=== PATIENT | male | born 1935 | race Caucasian/White ===

== ENCOUNTER → 2018-02-20 14:01 | Outpatient (CLI) | payer OTHER, SELFPAY ==
[2018-02-20 14:55] LABS: Blood Urea Nitrogen 24 mg/dL (9-20); Calcium 9.2 mg/dL (8.4-10.2); Carbon Dioxide 29 mmol/L (22-32); Chloride 105 mmol/L (98-107); Glucose 113 mg/dL (80-110); HEMOLYSIS < 15 (0-50); Potassium 4.3 mmol/L (3.4-5.1); Sodium 145 mmol/L (137-145)
== END ==
PROVIDERS: Family Provider Internal Medicine; PCP Internal Medicine; Visit Provider Internal Medicine Cardiovascular Disease
DX: I10 Essential (primary) hypertension (principal)
CPT/HCPCS: 36415; 80048

== ENCOUNTER 2018-07-11 22:32 | Emergency (ER) | payer OTHER, SELFPAY ==
[2018-07-11 22:25] VITALS: BP 107/68; PULSE 59; RESP 37; TEMP 38.3; O2SAT 92; BMI 25.1
[2018-07-11 22:26] VITALS: BP 107/68; PULSE 87; RESP 37; TEMP 38.3; O2SAT 95; BMI 25.1
--- NOTE | 2018-07-11 22:31 | ED.NAVMDI ---
HPI - Nausea/Vomiting/Diarrhea General Chief complaint: Nausea/Vomiting/Diarrhea Stated complaint: GLF N/V Time Seen by Provider: 07/11/18 22:32 Source: patient Mode of arrival: EMS Limitations: no limitations History of Present Illness HPI Narrative: 83-year-old male not on anticoagulation here for evaluation of a ground level fall. Patient was brought in by EMS. Ems was called by 1 of his neighbors. He lives at a assisted living facility however is mostly independent. He states that he was bending over to pick something up off the ground when he fell. No loss of consciousness. Not on anticoagulation. EMS reports that he was covered in vomit when they got there. He states that he did vomit after he fell however he has been vomiting throughout the day. He states that is black colored. He does have some abdominal tenderness. Some nausea. Related Data Home Medications Medication Instructions Recorded Confirmed VITAMIN D (Vitamin D3) 1,000 unit PO QDAY #0 03/11/17 aspirin 81 mg PO QDAY #0 03/11/17 chlorthalidone 25 mg PO QDAY #0 03/11/17 losartan 50 mg PO QDAY #0 03/11/17 metoprolol tartrate 50 mg PO DAILY #0 03/11/17 Allergies Allergy/AdvReac Type Severity Reaction Status Date / Time Sulfa (Sulfonamide Allergy Intermediate UNSURE OF Verified 07/11/18 23:04 Antibiotics) REACTION [SULFA (SULFONAMIDE ANTIBIOTICS)] Review of Systems Constitutional Denies frequent falls and Denies headache(s) ENT Ears, Nose, Mouth, and Throat: Denies vertigo, Denies dizziness and Denies headache(s) Cardiovascular Denies chest pain and Denies dyspnea Respiratory Denies dyspnea Gastrointestinal Gastrointestinal: Reports abdominal pain, Denies change in bowel habits, Denies change in stool character, Reports coffee ground emesis, Denies diarrhea, Reports nausea and Reports vomiting Genitourinary Denies dysuria Integumentary/Breasts Comments: Skin tear to his left elbow a fall Neurologic Denies vertigo, Denies dizziness, Denies frequent falls and Denies headache(s) Hematologic/Lymphatic Denies easy bleeding and Denies easy bruising Allergic/Immunologic Denies urticaria PFSH Medical History Hyperlipidemia (Acute) Hypertension (Acute) Surgical History History of permanent cardiac pacemaker placement (Acute) Social History housing: assisted living facility Social History housing: assisted living facility Exam Initial Vital Signs Initial Vital Signs: Vital Signs Temperature 100.9 F H 07/11/18 22:25 Pulse Rate 59 L 07/11/18 22:25 Respiratory Rate 37 H 07/11/18 22:25 Blood Pressure 107/68 07/11/18 22:25 Pulse Oximetry 92 07/11/18 22:25 Const General: comfortable, well developed and ill appearing Orientation: alert, awake and oriented x3 HENMT Head: normal to inspection and normocephalic Ears: hearing grossly normal bilaterally Nose: external nose normal Face and sinus: normal facial exam Eyes Pupils: PERRL Resp Effort & Inspection: not labored and tachypneic Auscultation: rhonchi Cardio Rate: regular rate Pulses: radial pulses present Other: Paced rhythm GI Inspection: non-distended Palpation: soft, firm, No guarding and tender (Diffusely tender) Other: Very large red and tender left sided inguinal hernia. Skin Other: Skin tear left elbow Neuro General: alert, awake and oriented x3 Cognition: normal cognition Speech: speech normal Extrem General: normal to inspection, capillary refill normal and edema Other: Pelvis stable. Moves all 4 extremities. Psych Appearance: grossly normal and well kempt Course Orders Ordered: ED Orders 07/11/18 22:29 EKG-12 Lead Stat 07/11/18 22:41 XR chest 1V Stat 07/11/18 22:48 Blood Culture Stat 07/11/18 22:51 CT abdomen pelvis w con Stat 07/11/18 22:58 B Type Natriuretic Peptide Stat Complete Blood Count AUTO DIFF Stat Lactate (Lactic Acid) Stat Partial Thromboplastin Time Stat Procalcitonin Stat Prothrombin Time INR Stat Type and Screen Stat 07/11/18 22:59 Comprehensive Metabolic Panel Stat Lipase Stat Troponin I Stat 07/12/18 00:38 XR chest 1V Stat Pantoprazole Sodium 80 mg/ (Sodium Chloride) 100 mls @ 10 mls/hr IV CONT NÉSTOR Last Admin: 07/12/18 00:08 Dose: 8 mg/hr, 10 mls/hr Sodium Chloride (Normal Saline 0.9%) 2,313.33 mls @ 771.11 mls/hr 30 ml/kg infuse over 3 hr (2313.33 ml) IV CONT NÉSTOR Last Infusion: 07/12/18 00:11 Dose: 600 mls/hr Admin: 07/12/18 00:09 Dose: 771.11 mls/hr Discontinued Medications Sodium Chloride (Normal Saline 0.9%) 1,000 mls @ 1,000 mls/hr IV BOLUS ONE Stop: 07/11/18 23:24 Last Infusion: 07/12/18 00:08 Dose: 0 mls/hr Infusion: 07/11/18 22:54 Dose: 125 mls/hr Admin: 07/11/18 22:53 Dose: 1,000 mls/hr Pantoprazole Sodium 80 mg/ (Sodium Chloride) 100 mls @ 300 mls/hr IV NOW ONE Stop: 07/11/18 23:09 Last Admin: 07/11/18 22:59 Dose: Not Given Piperacillin/Tazobactam/Dextrose (Zosyn) 3.375 gm in 50 mls @ 100 mls/hr IV NOW ONE Stop: 07/12/18 00:00 Last Infusion: 07/12/18 00:38 Dose: 0 mls/hr Admin: 07/12/18 00:00 Dose: 100 mls/hr Vancomycin HCl/Dextrose (Vancomycin) 1,000 mg in 200 mls @ 200 mls/hr IV NOW ONE Stop: 07/12/18 00:30 Last Infusion: 07/12/18 01:07 Dose: 0 mls/hr Admin: 07/12/18 00:07 Dose: 200 mls/hr Sodium Chloride (Normal Saline 0.9%) 1,000 mls @ 200 mls/hr IV CONT NÉSTOR Ondansetron HCl (Zofran Odt) 4 mg PO NOW ONE Stop: 07/11/18 22:41 Last Admin: 07/11/18 22:53 Dose: Not Given Ondansetron HCl (Zofran) 4 mg IV NOW ONE Stop: 07/11/18 22:52 Last Admin: 07/11/18 22:52 Dose: 4 mg Pantoprazole Sodium (Protonix) 80 mg IV NOW ONE Stop: 07/11/18 22:59 Last Admin: 07/11/18 23:04 Dose: 80 mg Vital Signs - 8 hr 07/11/18 22:25 07/11/18 22:26 07/11/18 23:07 Temperature 100.9 F H 100.9 F H Pulse Rate 59 L 87 87 Respiratory Rate 37 H 37 H 35 H Blood Pressure 107/68 107/68 Blood Pressure [Right Arm] 99/64 Pulse Oximetry 92 95 100 07/11/18 23:30 07/12/18 00:00 07/12/18 00:22 Temperature Pulse Rate 94 H 88 89 Respiratory Rate 38 H 35 H 30 H Blood Pressure Blood Pressure [Right Arm] 90/54 L 114/67 98/64 Pulse Oximetry 97 97 95 07/12/18 00:24 07/12/18 00:45 07/12/18 00:55 Temperature Pulse Rate 89 87 84 Respiratory Rate 31 H 37 H 36 H Blood Pressure Blood Pressure [Right Arm] 94/61 89/58 L 102/61 Pulse Oximetry 95 95 95 07/12/18 01:10 07/12/18 01:15 Temperature 99.1 F Pulse Rate 85 78 Respiratory Rate 38 H 28 H Blood Pressure Blood Pressure [Right Arm] 101/59 L 93/74 Pulse Oximetry 96 93 MDM - Nausea/Vomiting/Diarrhea Lab Data Attestation: I reviewed the patient's lab results. Result diagrams: 07/11/18 22:58 07/11/18 22:59 Lab Results 07/11/18 07/11/18 07/11/18 Range/Units 22:58 22:58 22:58 WBC 8.1 (4.5-11.0) X10^3/uL RBC 3.88 L (4.5-5.9) X10^6/uL Hgb 12.2 L (13.5-17.5) g/dL Hct 37.3 L (41-53) % MCV 96.1 (80-100) fL MCH 31.5 (26-34) PG MCHC 32.8 (30-36) % RDW 13.5 (11.6-14.8) % Plt Count 203 (150-400) X10^3/uL Neut % (Auto) 94.7 H (50-75) % Lymph % (Auto) 3.2 L (25-40) % Hart % (Auto) 1.9 L (3-14) % Eos % (Auto) 0.0 L (2-4) % Baso % (Auto) 0.2 (0-2) % Neut # (Auto) 7700 H (7294-7773) /uL Lymph # (Auto) 300 L (2781-3069) /uL Hart # (Auto) 200 (0-900) /uL Eos # (Auto) 0 (0-450) /uL Baso # (Auto) 0 (0-100) /uL PT 12.7 (10.1-12.7) SECONDS INR 1.1 (0.9-1.3) APTT 23 L (26.4-36.2) SECONDS Sodium (137-145) mmol/L Potassium (3.4-5.1) mmol/L Chloride (98-107) mmol/L Carbon Dioxide (22-32) mmol/L BUN (9-20) mg/dL Creatinine (0.66-1.25) mg/dL Estimated GFR (>60) mL/min BUN/Creatinine Ratio (6-22) Glucose (80-110) mg/dL Lactate (0.7-2.1) mmol/L Calcium (8.4-10.2) mg/dL Total Bilirubin (0.2-1.3) mg/dL AST (17-59) IU/L ALT (21-72) IU/L Alkaline Phosphatase (38-126) U/L Troponin I (0.01-0.034) ng/mL B-Natriuretic Peptide (<100) Total Protein (6.3-8.2) g/dL Albumin (3.5-5.0) g/dL Globulin (1.7-4.1) g/dL Albumin/Globulin Ratio (1.0-2.8) Lipase (23-300) U/L Procalcitonin 0.61 H (<0.5) ng/mL Blood Type Antibody Screen 07/11/18 07/11/18 07/11/18 Range/Units 22:58 22:58 22:58 WBC (4.5-11.0) X10^3/uL RBC (4.5-5.9) X10^6/uL Hgb (13.5-17.5) g/dL Hct (41-53) % MCV (80-100) fL MCH (26-34) PG MCHC (30-36) % RDW (11.6-14.8) % Plt Count (150-400) X10^3/uL Neut % (Auto) (50-75) % Lymph % (Auto) (25-40) % Hart % (Auto) (3-14) % Eos % (Auto) (2-4) % Baso % (Auto) (0-2) % Neut # (Auto) (3299-8199) /uL Lymph # (Auto) (2478-3853) /uL Hart # (Auto) (0-900) /uL Eos # (Auto) (0-450) /uL Baso # (Auto) (0-100) /uL PT (10.1-12.7) SECONDS INR (0.9-1.3) APTT (26.4-36.2) SECONDS Sodium (137-145) mmol/L Potassium (3.4-5.1) mmol/L Chloride (98-107) mmol/L Carbon Dioxide (22-32) mmol/L BUN (9-20) mg/dL Creatinine (0.66-1.25) mg/dL Estimated GFR (>60) mL/min BUN/Creatinine Ratio (6-22) Glucose (80-110) mg/dL Lactate 9.7 H (0.7-2.1) mmol/L Calcium (8.4-10.2) mg/dL Total Bilirubin (0.2-1.3) mg/dL AST (17-59) IU/L ALT (21-72) IU/L Alkaline Phosphatase (38-126) U/L Troponin I (0.01-0.034) ng/mL B-Natriuretic Peptide 1360 H (<100) Total Protein (6.3-8.2) g/dL Albumin (3.5-5.0) g/dL Globulin (1.7-4.1) g/dL Albumin/Globulin Ratio (1.0-2.8) Lipase (23-300) U/L Procalcitonin (<0.5) ng/mL Blood Type A Positive Antibody Screen Negative 07/11/18 Range/Units 22:59 WBC (4.5-11.0) X10^3/uL RBC (4.5-5.9) X10^6/uL Hgb (13.5-17.5) g/dL Hct (41-53) % MCV (80-100) fL MCH (26-34) PG MCHC (30-36) % RDW (11.6-14.8) % Plt Count (150-400) X10^3/uL Neut % (Auto) (50-75) % Lymph % (Auto) (25-40) % Hart % (Auto) (3-14) % Eos % (Auto) (2-4) % Baso % (Auto) (0-2) % Neut # (Auto) (9838-2471) /uL Lymph # (Auto) (2871-3389) /uL Hart # (Auto) (0-900) /uL Eos # (Auto) (0-450) /uL Baso # (Auto) (0-100) /uL PT (10.1-12.7) SECONDS INR (0.9-1.3) APTT (26.4-36.2) SECONDS Sodium 145 (137-145) mmol/L Potassium 3.8 (3.4-5.1) mmol/L Chloride 107 (98-107) mmol/L Carbon Dioxide 20 L (22-32) mmol/L BUN 47 H (9-20) mg/dL Creatinine 1.80 H (0.66-1.25) mg/dL Estimated GFR 36.2 L (>60) mL/min BUN/Creatinine Ratio 26.1 H (6-22) Glucose 160 H (80-110) mg/dL Lactate (0.7-2.1) mmol/L Calcium 9.3 (8.4-10.2) mg/dL Total Bilirubin 0.8 (0.2-1.3) mg/dL AST 26 (17-59) IU/L ALT 14 L (21-72) IU/L Alkaline Phosphatase 51 (38-126) U/L Troponin I 0.285 H* (0.01-0.034) ng/mL B-Natriuretic Peptide (<100) Total Protein 7.0 (6.3-8.2) g/dL Albumin 4.1 (3.5-5.0) g/dL Globulin 2.9 (1.7-4.1) g/dL Albumin/Globulin Ratio 1.4 (1.0-2.8) Lipase 1190 H (23-300) U/L Procalcitonin (<0.5) ng/mL Blood Type Antibody Screen Imaging Data CT scan - abdomen: Radiologist's impression: Large left inguinal hernia containing bowel with mesenteric edema present, possible strangulation. Marked distention of the stomach and duodenum. Distended distal esophagus. Partially thrombosed abdominal aortic aneurysm. Right kidney cortical cyst. Right cardiophrenic angle cystic structure measuring about 3 cm. Possible pericardial cyst. Small ascites. No free air. Chest x-ray: Attestation: I personally reviewed and interpreted this imaging study as follows: My impression: Bilateral patchy infiltrates. Marked distention of the gastric bubble Post NG tube chest x-ray: Attestation: I personally reviewed and interpreted this imaging study as follows: My impression: Unchanged with previous chest x-ray except hand G-tube in the stomach ECG Data Attestation: I personally reviewed and interpreted this ECG as follows: Prior ECG tracings: not available for review Interpretation: Ventricularly paced rhythm Rate of 88 Widened QRS Normal QTC MDM Narrative Medical decision making narrative: Patient's blood pressure and heart rate improved with fluid resuscitation. He was given Zosyn and vancomycin for presumed sepsis. NG tube was placed with return of greater than 3 L of dark GI contents. Patient states he feels better after placement of the NG tube. Does have an elevated troponin. I suspect this is demand ischemia. He is not complaining of any chest pain. Patient does have a bump in his creatinine. He does not have an elevated white count does have a left shift. Procalcitonin elevated lactate significantly elevated. CT scan concerning for strangulated inguinal hernia. This was reduced in the emergency department with minimal discomfort. Her also reports of a thrombosed abdominal aortic aneurysm. Patient also has a elevated lipase consistent with pancreatitis. I feel given his multiple comorbidities that transferring to a facility that has Cardiology and vascular surgery and General surgery and Intensive Care Medicine is warranted. Discussed the case with Dr. Benitez with General surgery at [facility] who recommended that the patient be admitted to the ICU. I discussed the case with Dr. Diaz chronic manager at [facility] who accepts the patient for transport. Discussed the transport with the patient expressed understanding and agreement. Patient is stable for transport. Critical Care Time Critical Care Time: Yes Total Critical Care Time: 35 Attestation: The high probability of a clinically significant, sudden or life threatening deterioration of the cardiovascular, GI, system(s) required my full and direct attention, intervention and personal management. The aggregate critical care time was 35 minutes. This time is in addition to time spent performing reported procedures but includes the following: [] Data Review and interpretation [] Patient assessment and monitoring of vital signs [] Documentation [] Medication orders and management Discharge Plan Departure Patient Disposition: [facility] Clinical Impression: Strangulated inguinal hernia, Acute kidney injury, Elevated troponin GI bleed Qualifiers: GI bleed type/associated pathology: unspecified gastrointestinal hemorrhage type Qualified Code(s): K92.2 - Gastrointestinal hemorrhage, unspecified Pancreatitis Qualifiers: Chronicity: acute Pancreatitis type: unspecified pancreatitis type Acute pancreatitis complication: unspecified Qualified Code(s): K85.90 - Acute pancreatitis without necrosis or infection, unspecified Prescriptions: No Action losartan 50 MG tablet 50 mg PO QDAY Qty: 0 RF: 0 metoprolol tartrate 50 MG tablet 50 mg PO DAILY Qty: 0 RF: 0 chlorthalidone 25 MG tablet 25 mg PO QDAY Qty: 0 RF: 0 aspirin 81 MG tablet,delayed release (DR/EC) 81 mg PO QDAY Qty: 0 RF: 0 VITAMIN D (Vitamin D3) 1,000 unit PO QDAY Qty: 0 RF: 0 Referrals: Aubrey Brice MD [Primary Care Provider] -
--- NOTE | 2018-07-11 22:41 | DI.RAD.S_ITS ---
PROCEDURE: XR CHEST 1V INDICATIONS: shortness of breath TECHNIQUE: One view of the chest was acquired. COMPARISON: [facility], , XR CHEST 1V, 07/12/2018, 0:42. [facility], , CHEST 2 VIEW, 06/11/2016, 11:01. FINDINGS: Surgical changes and devices: Cardiac pacer Lungs and pleura: No acute consolidation. Scattered subsegmental atelectasis and/or scarring. No pleural effusions or pneumothorax. Mediastinum: Mediastinal contours appear normal. Heart size is normal. Bones and chest wall: No suspicious bony lesions. Overlying soft tissues appear unremarkable. IMPRESSION: No acute consolidation. Scattered subsegmental atelectasis and/or scarring. Dictated by: Arturo Jean-Baptiste M.D. on 07/12/2018 at 7:44 Approved by: Arturo Jean-Baptiste M.D. on 07/12/2018 at 7:45
--- NOTE | 2018-07-11 22:51 | DI.CT.S_ITS ---
PROCEDURE: CT ABDOMEN PELVIS W CON INDICATIONS: GI bleed TECHNIQUE: After the administration of intravenous contrast, 5 mm thick sections acquired from the diaphragm to the symphysis. 5 mm coronal and sagittal reformats were acquired. For radiation dose reduction, the following was used: automated exposure control, adjustment of mA and/or kV according to patient size. COMPARISON: None. FINDINGS: Image quality: Excellent. ABDOMEN: Lung bases: Posterior consolidative opacity in the right lower lobe, this may be rounded atelectasis. Trace left pleural fluid. The heart is mildly enlarged. There are coronary artery calcifications right basilar posterior calcified pleural plaques. There is a approximately 3 cm low-attenuation possible pericardial cyst in the right pericardiophrenic sulcus. Solid organs: Presumed subcentimeter multiple hepatic cysts although these are technically too small to characterize accurately, otherwise liver is normal in size and enhancement. Gallbladder unremarkable. Biliary system is non dilated. Pancreas enhances normally. Spleen is normal in size and enhancement. No adrenal nodules. Bilateral renal cortical scarring and thinning. Simple appearing right renal cyst. Peritoneum and bowel: Fluid-filled and dilated esophagus. Marked dilatation of the stomach. There is questionable small bowel wall thickening, for example image 62 series 3 however limited evaluation given decompressed status. Large left inguinal hernia containing decompressed bowel loops. A large amount of stool present in the rectum. Diffuse nonspecific mesenteric edema.. Trace ascites. No free air. Appendix is not clearly identified however no suspicious pericecal inflammatory changes are identified Nodes and vessels: No retroperitoneal or mesenteric adenopathy by size criteria. 5.6 x 5.5 cm abdominal aortic aneurysm on image 53 series 3 with intraluminal thrombus. No periaortic hemorrhage is seen. Miscellaneous: No ventral hernias. PELVIS: Genitourinary: Bladder wall thickness is normal. Miscellaneous: No inguinal hernias or adenopathy. Bones: No suspicious bony lesions. No vertebral body compression fractures. IMPRESSION: Large left inguinal hernia containing bowel loops. Cannot exclude strangulation or incarceration. Marked distention of the stomach and proximal bowel as well as the distal esophagus. This may reflect proximal small bowel obstruction versus ileus. The remaining small bowel loops appear decompressed. There is questionable small bowel wall thickening raising the possibility of enteritis, although limited evaluation given collapsed state. Please correlate clinically Large amount of stool seen in the rectal vault raising the possibility of fecal impaction or severe constipation. Large abdominal aortic aneurysm. Recommend surgical consultation and management if this has not already been performed Low attenuation possibly cystic structure in the right pericardiophrenic region, possibly pericardial cyst, technically indeterminate Right basilar possible rounded atelectasis/scarring although technically indeterminate. Given the absence of prior studies, [address] could be performed for further assessment and to confirm no change. Dictated by: Arturo Jean-Baptiste M.D. on 07/12/2018 at 7:45 Approved by: Arturo Jean-Baptiste M.D. on 07/12/2018 at 7:57
[2018-07-11] MEDS: ONDANSETRON 4 MG/2 ML INJ IV (22:52)
[2018-07-11] MEDS: SODIUM CHLORIDE 0.9% 1,000 ML 1000 ML IV (22:53)
[2018-07-11] MEDS: PANTOPRAZOLE 40 MG VIAL 80 MG IV (23:04)
[2018-07-11 23:07] VITALS: BP 99/64; PULSE 87; RESP 35; O2SAT 100
[2018-07-11 23:15] LABS: Add Manual Diff / Slide Review NO; Basophils Absolute Auto 0 /uL (0-100); Basophils Percent Auto 0.2 % (0-2); Eosinophils Absolute Auto 0 /uL (0-450); Hematocrit 37.3 % (41-53); Hemoglobin 12.2 g/dL (13.5-17.5); Lymphocytes Absolute Auto 300 /uL (1100-4500); Lymphocytes Percent Auto 3.2 % (25-40); Mean Corpuscular HGB Conc 32.8 % (30-36); Mean Corpuscular Hemoglobin 31.5 PG (26-34); Mean Corpuscular Volume 96.1 fL (80-100); Monocytes Absolute Auto 200 /uL (0-900); Monocytes Percent Auto 1.9 % (3-14); Neutrophils Absolute Auto 7700 /uL (1500-7000); Neutrophils Percent Auto 94.7 % (50-75); Platelet Count 203 X10^3/uL (150-400); Red Blood Cell Count 3.88 X10^6/uL (4.5-5.9); Red Cell Distribution Width 13.5 % (11.6-14.8); White Blood Cell Count 8.1 X10^3/uL (4.5-11.0)
[2018-07-11 23:18] LABS: INR 1.1 (0.9-1.3); Prothrombin Time 12.7 SECONDS (10.1-12.7)
[2018-07-11 23:20] LABS: PTT Partial Thromboplastin Tim 23 SECONDS (26.4-36.2)
[2018-07-11 23:22] LABS: Lactate (Lactic Acid) 9.7 mmol/L (0.7-2.1)
[2018-07-11 23:30] VITALS: BP 90/54; PULSE 94; RESP 38; O2SAT 97
[2018-07-11 23:30] LABS: Alanine Aminotransferase 14 IU/L (21-72); Albumin 4.1 g/dL (3.5-5.0); Albumin Globulin Ratio 1.4 (1.0-2.8); Alkaline Phosphatase 51 U/L (38-126); Aspartate Aminotransferase 26 IU/L (17-59); BUN Creatinine Ratio 26.1 (6-22); Bilirubin Total 0.8 mg/dL (0.2-1.3); Blood Urea Nitrogen 47 mg/dL (9-20); Calcium 9.3 mg/dL (8.4-10.2); Carbon Dioxide 20 mmol/L (22-32); Chloride 107 mmol/L (98-107); Estimated Glomerular Filt Rate 36.2 mL/min (>60); Globulin 2.9 g/dL (1.7-4.1); Glucose 160 mg/dL (80-110); Lipase 1190 U/L (23-300); Potassium 3.8 mmol/L (3.4-5.1); Sodium 145 mmol/L (137-145)
[2018-07-11 23:35] LABS: B Type Natriuretic Peptide 1360 (<100)
[2018-07-11 23:37] LABS: Procalcitonin 0.61 ng/mL (<0.5)
[2018-07-12] VITALS (13 sets, daily range): BP systolic 89–114; BP diastolic 47–75; PULSE 78–89; RESP 12–38; TEMP 37.3; O2SAT 93–98
[2018-07-12] MEDS: PIPERACILLIN-TAZO 3.375 GM/50 ML FROZ.PIGGY IV
[2018-07-12] MEDS: VANCOMYCIN 1,000 MG/200 ML FROZ.PIGGY 200 MG IV (00:07)
[2018-07-12] MEDS: PANTOPRAZOLE 80 MG in SODIUM CHLORIDE 0.9% 100 ML 10 ML IV (00:08)
[2018-07-12] MEDS: SODIUM CHLORIDE 0.9% 2,313.33 ML 771.11 ML IV (00:09)
[2018-07-12 00:37] LABS: HEMOLYSIS 20 (0-50)
--- NOTE | 2018-07-12 00:38 | DI.RAD.S_ITS ---
PROCEDURE: XR CHEST 1V INDICATIONS: NG tube placment TECHNIQUE: One view of the chest was acquired. COMPARISON: [facility], CR, XR CHEST 1V, 07/11/2018, 22:49. FINDINGS: Surgical changes and devices: Cardiac pacer. Enteric tube with the tip projecting in the stomach. Lungs and pleura: No acute consolidation. Scattered subsegmental atelectasis and/or scarring. No pleural effusions or pneumothorax. Mediastinum: Mediastinal contours appear normal. Heart size is normal. Bones and chest wall: No suspicious bony lesions. Overlying soft tissues appear unremarkable. IMPRESSION: No acute consolidation. Scattered subsegmental atelectasis and/or scarring. Enteric tube with the tip projecting in the stomach. Dictated by: Arturo Jean-Baptiste M.D. on 07/12/2018 at 7:57 Approved by: Arturo Jean-Baptiste M.D. on 07/12/2018 at 7:58
[2018-07-12 01:10] LABS: Troponin I 0.285 ng/mL (0.01-0.034)
[2018-07-12] MEDS: LACTATED RINGERS 1,000 ML 125 ML IV (02:53)
[2018-07-12 03:07] LABS: Reflexed Lactate in 2 Hours Y
[2018-07-12 03:29] LABS: Lactate 2HR (Lactic Acid Rflx) 4.9 mmol/L (0.7-2.1)
== END 2018-07-12 03:30 | disposition short-term general hospital (02) ==
PROVIDERS: Emergency Provider Emergency Medicine; Family Provider Internal Medicine; PCP Internal Medicine
DX: K40.30 Unilateral inguinal hernia, with obstruction, without gangrene, not specified as recurrent (principal); N17.9 Acute kidney failure, unspecified; K92.2 Gastrointestinal hemorrhage, unspecified; K85.90 Acute pancreatitis without necrosis or infection, unspecified; R79.89 Other specified abnormal findings of blood chemistry
CPT/HCPCS: 36415; 71045; 74177; 80053; 83605; 83690; 83880; 84145; 84484; 85025; 85610; 85730; 86850; 86900; 86901; 87040; 93005; 96361; 96365; 96366; 96367; 96368; 96375; 99285; 99291; 99292; C9113; J2405; J2543; J3370; Q9967